=== PATIENT | male | born 2000 ===

== ENCOUNTER 2021-03-10 05:56 | Emergency (ER) | payer SELFPAY ==
[~2021-03-10] VITALS: Ht 180.3 cm; Wt 65.0 kg
--- NOTE | 2021-03-10 05:56 | NUR ---
TASK RN: INITIAL PT CONTACT. PT PRESENTS TO ED VIA EMS AFTER BEING F[facility]/O ALOC. PT A&OX1-2 UPON ARRIVAL. WHEN ASKED ORIENTATION QUESTIONS PT REPEATS THE QUESTION WITHOUT ANSWER, ABLE TO STATE NAME. AFTER FURTHER DISCUSSION WITH PT, PT ADMITS TO CONSUMPTION OF LSD EARLIER TODAY, DENIES ANY OTHER DRUG OR ETOH USE. PT SITTING UPRIGHT ON GURNEY, FOLLOWS SOME BASIC COMMANDS. PLACED ON CONTINUOUS PULSE OX AND CARDIAC MONITORING. ERP AT BEDSIDE.
[2021-03-10 06:42] LABS: ALANINE AMINOTRANSFERASE 13 U/L (12-78); ALBUMIN 3.9 g/dL (3.4-5.0); ANION GAP 9 mmol/L (5-15); CALCIUM 8.3 mg/dL (8.5-10.1); CHLORIDE 109 mmol/L (98-107); CREATININE 0.81 mg/dL (0.7-1.3)
[2021-03-10 06:43] LABS: SALICYLATE LEVEL < 1.7 mg/dL (2.8-20.0)
[2021-03-10 06:44] LABS: ALKALINE PHOSPHATASE 79 U/L (45-117); BILIRUBIN,TOTAL 0.3 mg/dL (0.2-1.0); TOTAL PROTEIN 7.3 g/dL (6.4-8.2)
--- NOTE | 2021-03-10 07:11 | NUR ---
REPORT RECEIVED AT BEDSIDE FROM SINGH DUKES. PT SLEEPING, AWAKENS TO PAINFUL STIMULI, ABLE TO SPEAK WHEN AWAKENED. RESPS EVEN AND UNLABORED. 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 ALL LABS RESULTED, POC TO DISCHARGE PT WHEN AWAKE, ALERT AND AMBULATORY.
--- NOTE | 2021-03-10 07:22 | NUR ---
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 RESPS EVEN AND UNLABORED. NSR RATE 80'S WITH NO ECTOPY. EKG TAKEN, REVIEWED BY CHRISTIANA REES. PER CHRISTIANA, EKG SHOWS EARLY REPOLARIZATION, NOT STEMI PER .
--- NOTE | 2021-03-10 08:51 | NUR ---
PT AWAKENS TO VOICE. PT ABLE TO STATE NAME, DENIES PAIN. PT QUICKLY FALLS BACK ASLEEP WHEN NOT STIMULATED. 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 RESPS EVEN AND UNLABORED. PUPILS 4MM WITH SLUGGISH RESPONSE TO LIGHT, EQUAL BILATERALLY. BED LOCKED AND IN LOWEST POSITION, CALL LIGHT IN REACH.
--- NOTE | 2021-03-10 10:41 | NUR ---
pt awakens to voice, resps even and unlabored, nsr on cardiac/vascular sonographer with no ectopy. when asked if pt wants food, he states "no I'm good." pt mostly sleeping. all monitors remain in place. pt to be discharged when awake, alert and ambulatory.
[2021-03-10 12:01] VITALS: BP 102/56
--- NOTE | 2021-03-10 12:46 | NUR ---
pt awoke spontaneously, a&ox4. pupils equal, round with brisk reaction to light. 3mm bilaterally. pt questioned regarding events last night, states he got drunk for fun, denies other drug use, denies suicidality. pt ambulatory with steady gait, dressed self and walked to bathroom. pt gave registration name, and insurance info prior to leaving. pt left wearing own clothing, hat, left with cell phone and wallet. pt ambulatory with steady gait, states he will call friend for a ride home.
== END 2021-03-10 12:47 | disposition home or self-care (01) ==
LOC: ED 11:00
DX: F10.129 Alcohol abuse with intoxication, unspecified (principal); G92 Toxic encephalopathy; F19.10 Other psychoactive substance abuse, uncomplicated; R94.31 Abnormal electrocardiogram [ECG] [EKG]; Y90.0 Blood alcohol level of less than 20 mg/100 ml
CPT/HCPCS: 36415; 80053; 80299; 80320; 80329; 93005; 99285; G0480